=== PATIENT | female | born 1940 | race Caucasian/White ===

== ENCOUNTER 2021-10-31 05:24 | Emergency (ER) | payer MEDICARE, OTHER | END 2021-10-31 06:26 | disposition home or self-care (01) | LOC: JD.ED 05:24 | DX: M54.16 Radiculopathy, lumbar region (principal); Z88.2 Allergy status to sulfonamides; Z90.710 Acquired absence of both cervix and uterus | CPT/HCPCS: 99282; 99283 ==

== ENCOUNTER 2022-09-08 08:47 | Emergency (ER) | payer MEDICARE, OTHER | END 2022-09-08 10:01 | disposition left against medical advice (07) | LOC: JD.ED 08:47 | DX: Z53.21 Procedure and treatment not carried out due to patient leaving prior to being seen by health care provider (principal) ==

== ENCOUNTER 2022-09-16 06:14 | Emergency (ER) | payer MEDICARE, OTHER ==
[2022-09-16 06:40] LABS: BASOPHILS ABSOLUTE AUTO 0.04 K/mm3 (0.01-0.08); BASOPHILS PERCENT AUTO 0.4 % (0.1-1.2); EOSINOPHILS PERCENT AUTO 1.8 (0.7-5.8); HEMATOCRIT 44.4 % (34.1-44.9); HEMOGLOBIN 14.8 gm/dl (11.2-15.7); IMMATURE GRAN ABSOLUTE AUTO 0.02 K/mm3 (0.00-0.10); IMMATURE GRAN PERCENT AUTO 0.2 % (<=1.0); LYMPHOCYTES ABSOLUTE AUTO 2.32 K/mm3 (1.18-3.74); LYMPHOCYTES PERCENT AUTO 21.3 % (19.3-51.7); MEAN CORPUSCULAR HEMOGLOBIN 30.8 pg (25.6-32.2); MEAN CORPUSCULAR HGB CONC 33.3 g/dl (32.2-35.5); MEAN CORPUSCULAR VOLUME 92.3 fl (79.4-94.8); MEAN PLATELET VOLUME 8.8 fl (9.4-12.3); MONOCYTES ABSOLUTE AUTO 1.19 K/mm3 (0.24-0.36); MONOCYTES PERCENT AUTO 10.9 % (4.7-12.5); NEUTROPHILS ABSOLUTE AUTO 7.12 K/mm3 (1.56-6.13); NEUTROPHILS PERCENT AUTO 65.4 % (34.0-71.1); PLATELET COUNT,PLT 344 K/mm3 (182-369); RED BLOOD CELL COUNT 4.81 M/mm3 (3.98-5.22); WHITE BLOOD CELL COUNT,WBC 10.89 K/mm3 (3.98-10.04)
[2022-09-16 06:51] LABS: INR 0.94; PROTHROMBIN TIME 10.1 SECONDS (9.7-12.0)
[2022-09-16 06:54] LABS: A/G RATIO 1.4 (1-2); ALBUMIN 3.5 g/dl (3.4-5.0); ANION GAP 14.1 (5-15); BILIRUBIN TOTAL 0.5 mg/dL (0.2-1.0); BUN/CREATININE RATIO 12.7 (14-18); CALCIUM 9.5 mg/dL (8.5-10.1); CREATININE 1.1 mg/dL (0.55-1.02); EST CRCL DRUG DOSING (CG) 36.28 mL/min; POTASSIUM,K 4.1 mEq/L (3.5-5.1)
[2022-09-16] MEDS ORDERED: Iopamidol 755 Mg/ML 100 ML Bottle IVPUSH ONE (07:48)
[2022-09-16] MEDS ORDERED: Sodium Chloride 0.9% 100 ML IV SCH (08:00)
== END 2022-09-16 09:36 | disposition home or self-care (01) ==
LOC: JD.ED 06:14
DX: R29.818 Other symptoms and signs involving the nervous system (principal); R91.1 Solitary pulmonary nodule; Z91.048 Other nonmedicinal substance allergy status; Z88.2 Allergy status to sulfonamides
CPT/HCPCS: 36415; 70450; 70496; 70498; 71045; 80053; 82947; 85025; 85610; 93005; 99284; J3490; Q9967

== ENCOUNTER 2022-10-20 01:04 | Emergency (ER) | payer MEDICARE, OTHER ==
[2022-10-20 01:44] LABS: BASOPHILS ABSOLUTE AUTO 0.02 K/mm3 (0.01-0.08); BASOPHILS PERCENT AUTO 0.3 % (0.1-1.2); EOSINOPHILS ABSOLUTE AUTO 0.22 K/mm3 (0.04-0.36); HEMATOCRIT 41.7 % (34.1-44.9); HEMOGLOBIN 13.9 gm/dl (11.2-15.7); IMMATURE GRAN ABSOLUTE AUTO 0.01 K/mm3 (0.00-0.10); IMMATURE GRAN PERCENT AUTO 0.1 % (<=1.0); LYMPHOCYTES ABSOLUTE AUTO 1.87 K/mm3 (1.18-3.74); LYMPHOCYTES PERCENT AUTO 25.7 % (19.3-51.7); MEAN CORPUSCULAR HEMOGLOBIN 31.2 pg (25.6-32.2); MEAN CORPUSCULAR HGB CONC 33.3 g/dl (32.2-35.5); MEAN CORPUSCULAR VOLUME 93.5 fl (79.4-94.8); MEAN PLATELET VOLUME 8.8 fl (9.4-12.3); MONOCYTES ABSOLUTE AUTO 1.04 K/mm3 (0.24-0.36); MONOCYTES PERCENT AUTO 14.3 % (4.7-12.5); NEUTROPHILS ABSOLUTE AUTO 4.13 K/mm3 (1.56-6.13); NEUTROPHILS PERCENT AUTO 56.6 % (34.0-71.1); PLATELET COUNT,PLT 292 K/mm3 (182-369); RED BLOOD CELL COUNT 4.46 M/mm3 (3.98-5.22); WHITE BLOOD CELL COUNT,WBC 7.29 K/mm3 (3.98-10.04)
[2022-10-20 02:02] LABS: INR 0.93
[2022-10-20 02:18] LABS: A/G RATIO 1.6 (1-2); ALANINE AMINOTRANSFERASE,ALT 18 U/L (14-59); ALBUMIN 3.5 g/dl (3.4-5.0); ALKALINE PHOSPHATASE 78 U/L (46-116); ANION GAP 9.1 (5-15); ASPARTATE AMNIOTRANSFERASE,AST 16 U/L (15-37); BILIRUBIN TOTAL 0.3 mg/dL (0.2-1.0); BLOOD UREA NITROGEN,BUN 12 mg/dL (7-18); CALCIUM 9.3 mg/dL (8.5-10.1); CARBON DIOXIDE,CO2 28 mEq/L (21-32); CHLORIDE,CL 105 mEq/L (98-107); CREATININE 1.2 mg/dL (0.55-1.02); ESTIMATED GFR 45 mL/min (>60); GLUCOSE RANDOM 109 mg/dL (70-99); POTASSIUM,K 4.1 mEq/L (3.5-5.1); PROTEIN TOTAL,TP 5.7 g/dl (6.4-8.2); SODIUM,NA 138 mEq/L (136-145)
== END 2022-10-20 03:06 | disposition home or self-care (01) ==
LOC: JD.ED 01:04
DX: R53.83 Other fatigue (principal); Z91.09 Other allergy status, other than to drugs and biological substances; Z88.2 Allergy status to sulfonamides
CPT/HCPCS: 36415; 71045; 71045-26; 80053; 85025; 85610; 93005; 93010; 99282; 99285

== ENCOUNTER 2023-06-16 21:07 | Inpatient (IN) | payer MEDICARE, OTHER ==
[2023-06-16] MEDS ORDERED: Acetaminophen 325 MG Tab PO PRN (21:59)
[2023-06-16] MEDS: Dextrose 5% in Water 1,000 ML IV SCH (22:25)
[2023-06-16 22:28] LABS: BASOPHILS PERCENT AUTO 0.2 % (0.0-1.0); EOSINOPHILS PERCENT AUTO 0.3 % (0.0-6.0); HEMATOCRIT 33.2 % (37.0-47.0); HEMOGLOBIN 11.3 gm/dl (12.0-16.0); IMMATURE GRAN ABSOLUTE AUTO 0.03 K/mm3 (0.00-0.05); IMMATURE GRAN PERCENT AUTO 0.5 % (0.0-0.4); LYMPHOCYTES ABSOLUTE AUTO 0.9 K/mm3 (1.0-4.8); LYMPHOCYTES PERCENT AUTO 15.5 % (24.0-44.0); MEAN CORPUSCULAR HEMOGLOBIN 29.9 pg (28.0-32.0); MEAN CORPUSCULAR VOLUME 87.8 fl (83.0-99.0); MEAN PLATELET VOLUME 8.9 fl (9.4-12.3); MONOCYTES ABSOLUTE AUTO 0.2 K/mm3 (0.0-0.8); NEUTROPHILS ABSOLUTE AUTO 4.7 K/mm3 (1.8-7.7); NEUTROPHILS PERCENT AUTO 79.5 % (41.0-71.0); PLATELET COUNT,PLT 316 K/mm3 (150-400); RED BLOOD CELL COUNT 3.78 M/mm3 (4.10-5.30); WHITE BLOOD CELL COUNT,WBC 5.95 K/mm3 (3.9-11.3)
[2023-06-16 22:43] LABS: INR 1.07; PROTHROMBIN TIME 11.4 SECONDS (9.7-12.0)
[2023-06-16 22:45] LABS: PTT,PARTIAL THROMBOPLSTIN TIME 28.4 SECONDS (21.7-31.4)
[2023-06-16 22:51] LABS: LACTIC ACID 0.8 mmol/L (0.4-2.0)
[2023-06-16 22:58] LABS: A/G RATIO 0.6 (1-2); ANION GAP 11.5 (5-15); BILIRUBIN TOTAL 0.5 mg/dL (0.2-1.0); BUN/CREATININE RATIO 17.8 (14-18); C-REACTIVE PROTEIN 14.4 mg/dL (<0.30); CALCIUM 8.8 mg/dL (8.5-10.1); CREATININE 0.9 mg/dL (0.55-1.02); EST CRCL DRUG DOSING (CG) 33.42 mL/min; MAGNESIUM 2.1 mg/dL (1.8-2.4); POTASSIUM,K 4.5 mEq/L (3.5-5.1); PROTEIN TOTAL,TP 5.4 g/dl (6.4-8.2)
[2023-06-17] MEDS: Levofloxacin/Dextrose 5%-Water 750 MG in Premix Bag 1 BAG IV ONE (00:42)
[2023-06-17 00:58] LABS: APPEARANCE,URINE CLEAR (Clear); BILIRUBIN,URINE NEGATIVE (Negative); COLOR,URINE YELLOW (Yellow); GLUCOSE,URINE NEGATIVE (Negative); KETONES,URINE NEGATIVE (Negative); LEUKOCYTE ESTERASE,URINE 1+ (Negative); NITRITE,URINE NEGATIVE (Negative); OCCULT BLOOD,URINE NEGATIVE (Negative); PROTEIN,URINE 2+ (Negative); UROBILINOGEN,URINE 0.2 (0.2-1.0)
[2023-06-17 01:07] LABS: BACTERIA,URINE FEW /hpf (FEW); RBC,URINE 0-5 /hpf (0-5)
[2023-06-17 01:08] LABS: MUCUS,URINE FEW /hpf (FEW)
[2023-06-17 06:53] LABS: ANION GAP 10.2 (5-15); CALCIUM 8.4 mg/dL (8.5-10.1); EST CRCL DRUG DOSING (CG) 30.08 mL/min; POTASSIUM,K 4.2 mEq/L (3.5-5.1)
[2023-06-17] MEDS ORDERED: Bisacodyl 5 MG Tab PO PRN (07:28)
[2023-06-17] MEDS: Heparin Sodium 5,000 Units/ML Vial SUBCUT SCH (10:21)
[2023-06-17] MEDS: Sodium Chloride 0.9% 1,000 ML IV SCH (10:21)
[2023-06-17] MEDS: cefTRIAXone 2 GM in Sodium Chloride 0.9% 100 ML IV SCH (10:21)
[2023-06-17] MEDS: Acetaminophen 325 MG Tab PO PRN (11:50)
[2023-06-18 05:33] LABS: BASOPHILS PERCENT AUTO 0.2 % (0.0-1.0); EOSINOPHILS ABSOLUTE AUTO 0.1 K/mm3 (0.0-0.4); EOSINOPHILS PERCENT AUTO 1.1 % (0.0-6.0); HEMATOCRIT 32.8 % (37.0-47.0); HEMOGLOBIN 11.1 gm/dl (12.0-16.0); IMMATURE GRAN ABSOLUTE AUTO 0.04 K/mm3 (0.00-0.05); IMMATURE GRAN PERCENT AUTO 0.7 % (0.0-0.4); LYMPHOCYTES ABSOLUTE AUTO 0.7 K/mm3 (1.0-4.8); LYMPHOCYTES PERCENT AUTO 12.8 % (24.0-44.0); MEAN CORPUSCULAR HEMOGLOBIN 30.5 pg (28.0-32.0); MEAN CORPUSCULAR HGB CONC 33.8 g/dl (32.0-36.0); MEAN CORPUSCULAR VOLUME 90.1 fl (83.0-99.0); MONOCYTES ABSOLUTE AUTO 0.3 K/mm3 (0.0-0.8); MONOCYTES PERCENT AUTO 4.4 % (0.0-8.0); NEUTROPHILS ABSOLUTE AUTO 4.6 K/mm3 (1.8-7.7); NEUTROPHILS PERCENT AUTO 80.8 % (41.0-71.0); PLATELET COUNT,PLT 337 K/mm3 (150-400); RED BLOOD CELL COUNT 3.64 M/mm3 (4.10-5.30); WHITE BLOOD CELL COUNT,WBC 5.69 K/mm3 (3.9-11.3)
[2023-06-18 05:39] LABS: ANION GAP 13.4 (5-15); BUN/CREATININE RATIO 11.1 (14-18); CALCIUM 8.5 mg/dL (8.5-10.1); CREATININE 0.9 mg/dL (0.55-1.02); EST CRCL DRUG DOSING (CG) 33.42 mL/min; POTASSIUM,K 4.4 mEq/L (3.5-5.1)
[2023-06-19 06:46] LABS: A/G RATIO 0.4 (1-2); ALBUMIN 1.4 g/dl (3.4-5.0); ANION GAP 12.6 (5-15); BILIRUBIN TOTAL 0.3 mg/dL (0.2-1.0); CALCIUM 7.8 mg/dL (8.5-10.1); CREATININE 0.8 mg/dL (0.55-1.02); EST CRCL DRUG DOSING (CG) 37.6 mL/min; POTASSIUM,K 3.6 mEq/L (3.5-5.1); PROTEIN TOTAL,TP 4.6 g/dl (6.4-8.2)
[2023-06-19 06:57] LABS: BASOPHILS PERCENT AUTO 0.2 % (0.0-1.0); EOSINOPHILS PERCENT AUTO 0.4 % (0.0-6.0); HEMATOCRIT 28.3 % (37.0-47.0); IMMATURE GRAN ABSOLUTE AUTO 0.06 K/mm3 (0.00-0.05); IMMATURE GRAN PERCENT AUTO 1.3 % (0.0-0.4); LYMPHOCYTES ABSOLUTE AUTO 0.8 K/mm3 (1.0-4.8); LYMPHOCYTES PERCENT AUTO 16.9 % (24.0-44.0); MEAN CORPUSCULAR HEMOGLOBIN 29.3 pg (28.0-32.0); MEAN CORPUSCULAR HGB CONC 33.6 g/dl (32.0-36.0); MEAN CORPUSCULAR VOLUME 87.3 fl (83.0-99.0); MONOCYTES ABSOLUTE AUTO 0.2 K/mm3 (0.0-0.8); MONOCYTES PERCENT AUTO 5.1 % (0.0-8.0); NEUTROPHILS ABSOLUTE AUTO 3.6 K/mm3 (1.8-7.7); NEUTROPHILS PERCENT AUTO 76.1 % (41.0-71.0); PLATELET COUNT,PLT 349 K/mm3 (150-400); RED BLOOD CELL COUNT 3.24 M/mm3 (4.10-5.30); WHITE BLOOD CELL COUNT,WBC 4.74 K/mm3 (3.9-11.3)
[2023-06-19 07:02] LABS: HEMOGLOBIN 9.5 gm/dl (12.0-16.0)
[2023-06-19] MEDS: Piperacillin/Tazobactam 4.5 GM in Sodium Chloride 0.9% 100 ML IV ONE (16:15)
[2023-06-20] MEDS: Piperacillin/Tazobactam 4.5 GM in Sodium Chloride 0.9% 100 ML IV SCH (00:07)
[2023-06-20 05:23] LABS: ANION GAP 12.5 (5-15); BUN/CREATININE RATIO 7.5 (14-18); CALCIUM 8.2 mg/dL (8.5-10.1); CREATININE 0.8 mg/dL (0.55-1.02); EST CRCL DRUG DOSING (CG) 37.6 mL/min; POTASSIUM,K 3.5 mEq/L (3.5-5.1)
[2023-06-20 06:05] LABS: BASOPHILS PERCENT AUTO 0.2 % (0.0-1.0); EOSINOPHILS ABSOLUTE AUTO 0.1 K/mm3 (0.0-0.4); EOSINOPHILS PERCENT AUTO 1.1 % (0.0-6.0); HEMATOCRIT 29.3 % (37.0-47.0); HEMOGLOBIN 9.8 gm/dl (12.0-16.0); IMMATURE GRAN ABSOLUTE AUTO 0.07 K/mm3 (0.00-0.05); IMMATURE GRAN PERCENT AUTO 1.1 % (0.0-0.4); LYMPHOCYTES ABSOLUTE AUTO 0.8 K/mm3 (1.0-4.8); LYMPHOCYTES PERCENT AUTO 13.5 % (24.0-44.0); MEAN CORPUSCULAR HEMOGLOBIN 29.2 pg (28.0-32.0); MEAN CORPUSCULAR HGB CONC 33.4 g/dl (32.0-36.0); MEAN CORPUSCULAR VOLUME 87.2 fl (83.0-99.0); MEAN PLATELET VOLUME 8.9 fl (9.4-12.3); MONOCYTES ABSOLUTE AUTO 0.2 K/mm3 (0.0-0.8); MONOCYTES PERCENT AUTO 3.4 % (0.0-8.0); NEUTROPHILS PERCENT AUTO 80.7 % (41.0-71.0); PLATELET COUNT,PLT 396 K/mm3 (150-400); RED BLOOD CELL COUNT 3.36 M/mm3 (4.10-5.30); WHITE BLOOD CELL COUNT,WBC 6.21 K/mm3 (3.9-11.3)
[2023-06-20] MEDS ORDERED: Piperacillin/Tazobactam 4.5 GM in Sodium Chloride 0.9% 100 ML IV SCH (07:45)
[2023-06-20] MEDS: Albuterol/Ipratropium 3.0-0.5 MG/3 ML Neb Soln NEB PRN (12:11)
[2023-06-21] MEDS: Albuterol/Ipratropium 3.0-0.5 MG/3 ML Neb Soln NEB PRN (13:26)
[2023-06-22 04:53] LABS: BASOPHILS PERCENT AUTO 0.3 % (0.0-1.0); EOSINOPHILS PERCENT AUTO 0.2 % (0.0-6.0); HEMOGLOBIN 11.4 gm/dl (12.0-16.0); IMMATURE GRAN ABSOLUTE AUTO 0.31 K/mm3 (0.00-0.05); IMMATURE GRAN PERCENT AUTO 2.8 % (0.0-0.4); LYMPHOCYTES ABSOLUTE AUTO 1.3 K/mm3 (1.0-4.8); LYMPHOCYTES PERCENT AUTO 11.9 % (24.0-44.0); MEAN CORPUSCULAR HEMOGLOBIN 29.5 pg (28.0-32.0); MEAN CORPUSCULAR HGB CONC 32.6 g/dl (32.0-36.0); MEAN CORPUSCULAR VOLUME 90.4 fl (83.0-99.0); MEAN PLATELET VOLUME 8.7 fl (9.4-12.3); MONOCYTES ABSOLUTE AUTO 0.3 K/mm3 (0.0-0.8); NEUTROPHILS ABSOLUTE AUTO 9.1 K/mm3 (1.8-7.7); NEUTROPHILS PERCENT AUTO 81.8 % (41.0-71.0); PLATELET COUNT,PLT 549 K/mm3 (150-400); RED BLOOD CELL COUNT 3.87 M/mm3 (4.10-5.30); WHITE BLOOD CELL COUNT,WBC 11.16 K/mm3 (3.9-11.3)
[2023-06-22 05:20] LABS: A/G RATIO 0.4 (1-2); ALBUMIN 1.6 g/dl (3.4-5.0); ANION GAP 12.1 (5-15); BILIRUBIN TOTAL 0.4 mg/dL (0.2-1.0); BUN/CREATININE RATIO 7.5 (14-18); CALCIUM 8.4 mg/dL (8.5-10.1); CREATININE 0.8 mg/dL (0.55-1.02); EST CRCL DRUG DOSING (CG) 37.6 mL/min; POTASSIUM,K 3.1 mEq/L (3.5-5.1); PROTEIN TOTAL,TP 5.5 g/dl (6.4-8.2)
[2023-06-22] MEDS: Sodium Chloride 0.9% 1,000 ML IV SCH (15:36)
[2023-06-22] MEDS: Morphine 2 MG/ML SYRINGE IVPUSH ONE (17:36)
== END 2023-06-23 10:01 | disposition expired | DRG 871 ==
LOC: JD.ED 21:07 → JD.MS 06-17 00:12
PROVIDERS: ADMIT Internal Medicine; ATTEND Internal Medicine
DX: A41.9 Sepsis, unspecified organism (principal); J18.9 Pneumonia, unspecified organism; J96.01 Acute respiratory failure with hypoxia; C81.90 Hodgkin lymphoma, unspecified, unspecified site; E87.1 Hypo-osmolality and hyponatremia; R65.20 Severe sepsis without septic shock; Z66 Do not resuscitate; Z86.16 Personal history of COVID-19; Z51.5 Encounter for palliative care; D64.9 Anemia, unspecified; M54.50 Low back pain, unspecified; W19.XXXA Unspecified fall, initial encounter; U09.9 Post COVID-19 condition, unspecified; H91.90 Unspecified hearing loss, unspecified ear; D3A.090 Benign carcinoid tumor of the bronchus and lung; F03.B0 Unspecified dementia, moderate, without behavioral disturbance, psychotic disturbance, mood disturbance, and anxiety; Z91.040 Latex allergy status; Z88.2 Allergy status to sulfonamides; Z79.899 Other long term (current) drug therapy; Z87.891 Personal history of nicotine dependence; Z90.710 Acquired absence of both cervix and uterus; Z91.048 Other nonmedicinal substance allergy status; Y92.009 Unspecified place in unspecified non-institutional (private) residence as the place of occurrence of the external cause
CPT/HCPCS: 36415; 71045; 72131; 80053; 83605; 83735; 83880; 84484; 85025; 85610; 85730; 86140; 87040 ×2; 93005; 96360; 99285; J7060; 80048; 81001; 93010; 94640; 94667; 94668; 94760; 94761; 94762; 97162-GP; 99222; 99232; 99233; 99238; A9270-GY; J0696; J1644; J1956; J2270; J2543; J3490; J7030; J7620-GY